=== PATIENT | male | born 1990 | race Caucasian/White ===

== ENCOUNTER → 2019-10-25 | Outpatient (CLI) | payer BC, MEDICAID ==
[2019-10-18 10:33] VITALS: BP 126/83
[~2019-10-25] VITALS: Ht 175.3 cm; Wt 117.0 kg
[~2019-10-25] MED LIST: CEFAZOLIN PMX 1GM/50ML 50 ML IV ONE; OMNIPAQUE 350 MG/ML, 100ML BOTTLE ONE; PLEASE ENTER ALLERGIES MC SCH; SODIUM CHLORIDE 0.9% 1,000 ML IV SCH
== END | disposition home or self-care (01) ==
LOC: RAD 10-18 09:04
PROVIDERS: ATTEND Internal Medicine Hematology & Oncology
DX: C18.2 Malignant neoplasm of ascending colon (principal); R59.0 Localized enlarged lymph nodes
CPT/HCPCS: 71260; 74177; Q9967; J0690; J7030